=== PATIENT | male | born 1995 | race Two or more races ===

== ENCOUNTER 2020-07-31 13:19 | Emergency (ER) | payer OTHER ==
[~2020-07-31] VITALS: Ht 167.6 cm; Wt 52.8 kg
[2020-07-31] MEDS ORDERED: MUPIROCIN OINT 2%, 1 GM APPL. TP ONE (15:09)
[2020-07-31] MEDS ORDERED: CEFAZOLIN PMX 1GM/50ML 50 ML ONE (15:18)
[2020-07-31] MEDS ORDERED: HYDROmorphone 1 MG/ML, 1ML INJ ONE (15:18)
[2020-07-31] MEDS ORDERED: ONDANSETRON 2MG/ML, 2ML ONE (15:28)
[2020-07-31] MEDS ORDERED: HYDROmorphone 2 MG/ML, 1ML IVPush PRN (15:30)
[2020-07-31] MEDS ORDERED: SODIUM CHLORIDE FLUSH 10ML SYR IVF ONE (15:30)
[2020-07-31] MEDS ORDERED: CEFAZOLIN PMX 1GM/50ML 50 ML IV ONE (15:30)
--- NOTE | 2020-07-31 15:36 | NUR ---
PIV STARTED, PT MEDICATED PER EMAR. PT RESTING ON [employer] W/ CALL LIGHT IN REACH, SIDE RAILS UPX2, FAMILY AT BEDSIDE, CONNECTED TO MONITORING. MED REQ FROM [facility]. [place].
[2020-07-31] MEDS ORDERED: MUPIROCIN OINT 2%, 22GM TP ONE (16:00)
[2020-07-31] MEDS ORDERED: ONDANSETRON 2MG/ML, 2ML IVPush ONE (16:00)
--- NOTE | 2020-07-31 16:10 | NUR ---
BACTROBAN APPLED AT 1610. SEE EMAR.
--- NOTE | 2020-07-31 16:35 | NUR ---
pt medicated per ear. pt tolerated well. pt's aox4. resps even and unlabored.
[2020-07-31 17:28] VITALS: BP 122/77
--- NOTE | 2020-07-31 17:33 | NUR ---
pt resting in [facility]. pt's aox4. resps even and unlabored. bp/spo2 monitors in place. call light within reach.
--- NOTE | 2020-07-31 17:49 | NUR ---
Patient given discharge instructions and they have confirmed that they understand the instructions. Patient ambulatory with steady gait.
== END 2020-07-31 17:49 | disposition home or self-care (01) ==
LOC: ED 15:25
DX: L03.211 Cellulitis of face (principal); B08.4 Enteroviral vesicular stomatitis with exanthem
CPT/HCPCS: 87081; 87880; 96365; 96375; 99284; J0690; J1170; J2405